=== PATIENT | male | born 1980 | race Hispanic/Latino ===

== ENCOUNTER 2020-02-02 | Emergency (ER) | payer SELFPAY ==
[2020-02-02 08:18] LABS: HEMATOCRIT 42.5 % (39.0-50.0); HEMOGLOBIN 13.9 g/dl (14.0-18.0); IMMATURE GRANULOCYTES 0.4 % (0.0-5.0); MEAN CELL VOLUME 94.4 fL CALC (80.0-100.0); MEAN CORPUSCULAR HGB 30.9 pG CALC (26.0-32.0); MEAN CORPUSCULAR HGB CONC 32.7 g/dL CAL (32.0-36.0); NEUT# 2.53 thou/uL (1.82-7.42); RED BLOOD COUNT 4.5 mill/uL (4.70-6.10); RED CELL DISTRI WIDTH 12.9 % (11.5-15.5)
[2020-02-02] MEDS ORDERED: AMOXICILLIN500 M2 PO (08:49)
--- NOTE | 2020-02-05 09:03 | NUR ---
Patient notified of + Covid results ([place]) by Joelle Andersen. Advised patient to quarantine at home until the [facility] contacts him with instructions. Advised patient to follow up with PCP or return to the ED with urgent issues such as difficulty breathing. Patient verbalized understanding.
== END 2020-02-02 08:55 | disposition home or self-care (01) | DRG 179 ==
PROVIDERS: Family Medicine
DX: U07.1 COVID-19 (principal); J06.9 Acute upper respiratory infection, unspecified